=== PATIENT | male | born 1990 | race Two or more races ===

== ENCOUNTER 2017-01-08 22:46 | Emergency (ER) | payer OTHER ==
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
[2017-01-09 00:44] VITALS: BP 112/75; PULSE 55; RESP 16; TEMP 97.9; O2SAT 96
== END 2017-01-09 00:44 | disposition home or self-care (01) ==
PROC: 08QNXZZ Repair Right Upper Eyelid, External Approach (ICD-10-PCS; principal; 2017-01-08)
DX: S01.111A Laceration without foreign body of right eyelid and periocular area, initial encounter (principal); S06.0X0A Concussion without loss of consciousness, initial encounter; F17.200 Nicotine dependence, unspecified, uncomplicated; W22.8XXA Striking against or struck by other objects, initial encounter; Y99.8 Other external cause status; Y93.89 Activity, other specified

== ENCOUNTER 2017-12-14 18:02 | Emergency (ER) | payer OTHER ==
--- NOTE | 2017-12-14 18:05 | EDPHY ---
H & P Time Seen by Provider: 12/14/17 18:04 HPI/ROS: CHIEF COMPLAINT: Right shoulder pain following dislocation HISTORY OF PRESENT ILLNESS: The patient presents the ED for evaluation of persistent right shoulder pain following a presumed dislocation that occurred yesterday walk hiking. The patient reports he was able to reduce his shoulder in the field. Since that time he has had persistent pain with active range of motion. He denies any associated numbness or weakness. The patient denies additional complaints. REVIEW OF SYSTEMS: A comprehensive 10 point review of systems is otherwise negative aside from elements mentioned in the history of present illness. Source: Patient Exam Limitations: No limitations - Personal History Tetanus Vaccine Date: 2016 - Medical/Surgical History Hx Asthma: No Hx Chronic Respiratory Disease: No Hx Diabetes: No Hx Cardiac Disease: No Hx Renal Disease: No Hx Cirrhosis: No Hx Alcoholism: No Hx HIV/AIDS: No Hx Splenectomy or Spleen Trauma: No Other PMH: denies - Social History Smoking Status: Current some day smoker - Physical Exam Exam: General Appearance: Alert, no distress Skin: No lacerations, No abrasion Extremities: Tenderness to palpation over the right humeral head, normal passive range of motion, painful active range of motion particularly with external rotation Neurological: Motor and sensory function intact throughout the right upper extremity Constitutional: Initial Vital Signs Temperature (C) 36.6 C 12/14/17 18:07 Heart Rate 87 12/14/17 18:07 Respiratory Rate 16 12/14/17 18:07 Blood Pressure 123/78 H 12/14/17 18:07 O2 Sat (%) 97 12/14/17 18:07 O2 Delivery Mode Room Air Allergies/Adverse Reactions: No Known Allergies Allergy (Unverified 12/14/17 18:06) Home Medications: Medication Instructions Recorded NK [No Known Home Meds] 01/08/17 Medical Decision Making - Diagnostics Imaging Results: Right shoulder x-ray: Images reviewed by myself, negative for acute fracture dislocation. ED Course/Re-evaluation: Patient presents the ED with residual shoulder pain following shoulder dislocation. There is no evidence of an obvious fracture per my interpretation. The patient will be offered a sling. He is advised to continue using NSAIDs and ice. The patient should follow up with our orthopedic surgeon Dr. Dangelo for any unimproved symptoms. Departure - Departure Disposition: Home, Routine, Self-Care Clinical Impression: Right shoulder strain Condition: Good Instructions: Shoulder Dislocation (ED) Additional Instructions: 1. Take Ibuprofen or Motrin 600 mg by mouth three times a day. 2. Sling as needed for comfort. 3. Your x-ray demonstrates no obvious fracture by my interpretation. Please schedule a follow-up appointment with our orthopedic surgeon Dr. Dangelo for evaluation of any ongoing pain, decreased mobility or sensation of instability as this may be the sign of a soft tissue injury not noted on the x-ray today. Referrals: Sindy Dangelo MD [Medical Doctor] - As per Instructions
[2017-12-14 18:08] VITALS: BP 123/78
== END 2017-12-14 18:53 | disposition home or self-care (01) ==
DX: S46.911A Strain of unspecified muscle, fascia and tendon at shoulder and upper arm level, right arm, initial encounter (principal); F17.200 Nicotine dependence, unspecified, uncomplicated; X58.XXXA Exposure to other specified factors, initial encounter; Y99.8 Other external cause status; Y93.01 Activity, walking, marching and hiking